=== PATIENT | female | born 1995 | race Caucasian/White ===

== ENCOUNTER 2020-11-04 13:19 | Emergency (ER) | payer SELFPAY ==
[2020-11-04 13:49] VITALS: BP 120/77
--- NOTE | 2020-11-04 15:05 | Emergency Department Report ---
"ED General Adult HPI - General Chief complaint: Upper Respiratory Infection Stated complaint: GAS IN BACK Time Seen by Provider: 11/04/20 14:33 Source: patient Mode of arrival: Ambulatory Limitations: No Limitations - History of Present Illness Initial comments: 25-year-old female who denies any significant past medical history presents to the ER today with complaints of chest and upper back discomfort. Patient states that symptoms have been intermittent and started a couple days ago. She states that she feels like she has gas in her anterior chest and upper back. She states that when she burps she gets relief, and she did try Tums and it eased up the discomfort. She denies any history of coughing, wheezing, shortness of breath, she denies any pain with deep breaths, she denies any abdominal pain, diarrhea or constipation. She denies any UTI symptoms. She denies any calf pain or lower extremity swelling. She denies any cold URI symptoms, fever or chills. She states that she smokes marijuana, but the last time she smoked was 2 months ago. She denies any tobacco use, alcohol abuse, or any other illicit drug use or IV drug use. Patient does admit that she has been very anxious lately since she lost her mom to cancer 3 months ago. She has not seen her doctor about the anxiety since the loss. She denies any SI or HI, visual or auditory hallucinations. She denies any history of psych disorders. MD Complaint: Chest and upper back discomfort -: Gradual, days(s) (2) Location: chest, back - Related Data Previous Rx's Medication Instructions Recorded Last Taken Type Famotidine [Pepcid] 20 mg PO BID #60 tablet 11/04/20 Unknown Rx Pantoprazole [Protonix] 40 mg PO QDAY #30 tablet 11/04/20 Unknown Rx Allergies Allergy/AdvReac Type Severity Reaction Status Date / Time No Known Allergies Allergy Verified 11/04/20 13:49 ED Review of Systems ROS: Stated complaint: GAS IN BACK Other details as noted in HPI Comment: All other systems reviewed and negative Constitutional: denies: chills, fever Eyes: denies: eye pain, eye discharge, vision change ENT: denies: ear pain, throat pain Respiratory: denies: cough, shortness of breath, SOB with exertion, SOB at rest, wheezing Cardiovascular: chest pain Gastrointestinal: denies: abdominal pain, nausea, vomiting, diarrhea, constipation, hematemesis, melena, hematochezia Genitourinary: denies: urgency, dysuria, discharge Musculoskeletal: back pain Skin: denies: rash, lesions, change in color, change in hair/nails, pruritus Neurological: denies: headache, weakness, numbness, paresthesias, confusion, abnormal gait, vertigo Psychiatric: denies: anxiety, depression, auditory hallucinations, visual hallucinations, homicidal thoughts, suicidal thoughts Hematological/Lymphatic: denies: easy bleeding, easy bruising ED Past Medical Hx - Medications Home Medications: Home Medications Medication Instructions Recorded Confirmed Last Taken Type Famotidine [Pepcid] 20 mg PO BID #60 tablet 11/04/20 Unknown Rx Pantoprazole [Protonix] 40 mg PO QDAY #30 tablet 11/04/20 Unknown Rx ED Physical Exam - General Limitations: No Limitations General appearance: alert, anxious - Head Head exam: Present: atraumatic, normocephalic, normal inspection - Eye Eye exam: Present: normal appearance, PERRL, EOMI Pupils: Present: normal accommodation - Neck Neck exam: Present: normal inspection. Absent: meningismus - Respiratory Respiratory exam: Present: normal lung sounds bilaterally. Absent: respiratory distress, wheezes, rales, rhonchi - Cardiovascular Cardiovascular Exam: Present: regular rate, normal rhythm, normal heart sounds - GI/Abdominal GI/Abdominal exam: Present: soft. Absent: distended, tenderness, guarding, rebound - Extremities Exam Extremities exam: Present: normal inspection, full ROM. Absent: pedal edema, calf tenderness - Back Exam Back exam: Present: normal inspection, full ROM. Absent: tenderness, paraspinal tenderness, vertebral tenderness - Neurological Exam Neurological exam: Present: alert, oriented X3, CN II-XII intact, normal gait - Psychiatric Psychiatric exam: Present: normal affect, normal mood - Skin Skin exam: Present: intact ED Course Vital Signs 11/04/20 11/04/20 13:49 16:41 Temperature 98.7 F Pulse Rate 116 H 105 H Respiratory 20 Rate Blood Pressure 120/77 [Left] O2 Sat by Pulse 100 Oximetry ED Medical Decision Making - EKG Data EKG shows normal: sinus rhythm Rate: tachycardia (105) - EKG Data Interpretation: normal EKG - Radiology Data Radiology results: report reviewed Patient: JANIS MACIAS MR#: [id number] : 1995 Acct:[id number] Age/Sex: 25 / F ADM Date: 11/04/20 Loc: ED Attending Dr: Ordering Physician: LEXI BARRETT Date of Service: 11/04/20 Procedure(s): XR chest routine 2V Accession Number(s): [id number] cc: LEXI BARRETT Fluoro Time In Minutes: CHEST 2 VIEWS INDICATION / CLINICAL INFORMATION: chest/upper back discomfort. COMPARISON: None available. FINDINGS: SUPPORT DEVICES: None. HEART / MEDIASTINUM: No significant abnormality. LUNGS / PLEURA: No significant pulmonary or pleural abnormality. No pneumothorax. ADDITIONAL FINDINGS: No significant additional findings. IMPRESSION: 1. No acute findings. Signer Name: Arben Garcia MD Signed: 11/04/2020 3:22 PM Workstation Name: [id number] | [id number] Transcribed By: CW Dictated By: CLOVIS GARCIA MD Electronically Authenticated By: CLOVIS GARCIA MD Signed Date/Time: 11/04/201521 DD/ 152 - Medical Decision Making 25-year-old female who denies any significant past medical history presents to the ER today with complaints of chest and upper back discomfort. Patient states that symptoms have been intermittent and started a couple days ago. She states that she feels like she has gas in her anterior chest and upper back. She states that when she burps she gets relief, and she did try Tums and it eased up the discomfort. She denies any history of coughing, wheezing, shortness of breath, she denies any pain with deep breaths, she denies any abdominal pain, diarrhea or constipation. She denies any UTI symptoms. She denies any calf pain or lower extremity swelling. She denies any cold URI symptoms, fever or chills. She states that she smokes marijuana, but the last time she smoked was 2 months ago. She denies any tobacco use, alcohol abuse, or any other illicit drug use or IV drug use. Patient does admit that she has been very anxious lately since she lost her mom to cancer 3 months ago. She has not seen her doctor about the anxiety since the loss. She denies any SI or HI, visual or auditory hallucinations. She denies any history of psych disorders. 1551: Chest x-ray shows nothing acute. EKG shows mild sinus tachycardia but otherwise no STEMI, or other acute ischemic changes or significant dysrhythmias. patient does appear anxious, but overall she is not toxic, ill-appearing and not in any significant pain or respiratory distress. She is neurologically intact. Based, and physical exam on patient history it sounds like her symptoms is more related to indigestion/GERD and also stress/anxiety which could also be worsening her GERD symptoms. Her history, exam, diagnostic testing and current condition does not suggest that her symptoms is cardiac related, as she has no risk factors for heart disease and she has no family history of heart disease. It also does not suggest PE, as she has no pleuritic pain, no shortness of breath no calf pain or swelling and she has no risk factors for PE or DVT given a PERC score of 0. I also do not suspect dissection, or any infectious process or sepsis. There is no indication for admission, further work-up or specialist consult at this time. Discussed imaging results with patient. Discussed suspected diagnosis with patient patient will be given referral to local primary care doctor as well as outpatient resources to mental health facilities who can help manage her anxiety. She also be started on Pepcid and Protonix. Discussed x-ray results, suspected diagnosis and treatment plan with patient. Patient expressed understanding of instructions and agree with plan. Patient stable at time of discharge. Critical care attestation.: If time is entered above; I have spent that time in minutes in the direct care of this critically ill patient, excluding procedure time. ED Disposition Clinical Impression: GERD (gastroesophageal reflux disease), Stress reaction, Pain, upper back, Nonspecific chest pain Disposition: 01 HOME / SELF CARE / HOMELESS Is pt being admited?: No Does the pt Need Aspirin: No Condition: Stable Instructions: Food Choices for Gastroesophageal Reflux Disease, Adult, Acute Back Pain, Adult, Nonspecific Chest Pain, Adult, Gastroesophageal Reflux Disease, Adult, [id number] Additional Instructions: I recommend that you take the pepcid and the protonix daily as prescribed. I do recommend following up with the PCP listed on your discharge instructions or one of the mental health facilities given on that list for further treatment and evaluation of your anxiety. Return to ED if your symptoms changes or worsens in anyway. Prescriptions: Famotidine [Pepcid] 20 mg PO BID #60 tablet Pantoprazole [Protonix] 40 mg PO QDAY #30 tablet Referrals: [facility] [Provider Group] - 3-5 Days (Primary Care physician ) Forms: Work/School Release Form(ED) Time of Disposition: 15:41"
--- NOTE | 2020-11-04 15:27 | XRay Report ---
CHEST 2 VIEWS INDICATION / CLINICAL INFORMATION: chest/upper back discomfort. COMPARISON: None available. FINDINGS: SUPPORT DEVICES: None. HEART / MEDIASTINUM: No significant abnormality. LUNGS / PLEURA: No significant pulmonary or pleural abnormality. No pneumothorax. ADDITIONAL FINDINGS: No significant additional findings. IMPRESSION: 1. No acute findings. Signer Name: Arben Garcia MD Signed: 11/04/2020 3:22 PM Workstation Name: [email or web address]
--- NOTE | 2020-11-09 14:21 | Electrocardiograph Report ---
[facility] Test Date: 2020-11-04 Test Time: 16:30:45 Pat Name: JANIS MACIAS Department: Room: Gender: F Laboratory Engineer: NURSE : 1995 Requested By: LEXI BARRETT Order Number: [id number] Reading MD: Barrett Mccord Measurements Intervals [place] Rate: 105 P: 72 NC: 159 QRS: 52 QRSD: 99 T: 49 QT: 343 QTc: 454 Interpretive Statements Sinus tachycardia No previous ECG available for comparison Electronically Signed On 11-09-2020 14:20:34 EDT by Barrett Mccord
== END 2020-11-04 16:44 | disposition home or self-care (01) ==
LOC: ED 13:19
DX: K21.9 Gastro-esophageal reflux disease without esophagitis (principal); M54.6 Pain in thoracic spine; Z79.899 Other long term (current) drug therapy
CPT/HCPCS: 71046; 93005; 99283